=== PATIENT | male | born 1965 | race Caucasian/White ===

== ENCOUNTER → 2019-11-15 | Outpatient (CLI) | payer OTHER | LOC: MHCPAIN 13:09 | DX: M47.817 Spondylosis without myelopathy or radiculopathy, lumbosacral region (principal); M54.5 Low back pain; G89.29 Other chronic pain; M54.16 Radiculopathy, lumbar region | CPT/HCPCS: G0463 ==

== ENCOUNTER → 2019-11-23 | Outpatient (CLI) | payer OTHER | LOC: MHCPAIN 13:57 | DX: M47.817 Spondylosis without myelopathy or radiculopathy, lumbosacral region (principal); M54.5 Low back pain; M53.3 Sacrococcygeal disorders, not elsewhere classified | CPT/HCPCS: J1100; Q9967 ==

== ENCOUNTER → 2019-12-05 | Outpatient (CLI) | payer OTHER | LOC: MHCPAIN 13:35 | DX: M47.817 Spondylosis without myelopathy or radiculopathy, lumbosacral region (principal); M79.651 Pain in right thigh; G89.29 Other chronic pain; G57.11 Meralgia paresthetica, right lower limb | CPT/HCPCS: G0463 ==

== ENCOUNTER → 2019-12-12 | Outpatient (CLI) | payer OTHER | LOC: MHCPAIN 09:29 | DX: G57.11 Meralgia paresthetica, right lower limb (principal) | CPT/HCPCS: J1040 ==

== ENCOUNTER → 2019-12-26 | Outpatient (CLI) | payer OTHER | LOC: MHCPAIN 10:45 | DX: M47.817 Spondylosis without myelopathy or radiculopathy, lumbosacral region (principal); M54.5 Low back pain; M53.3 Sacrococcygeal disorders, not elsewhere classified; G89.29 Other chronic pain; M54.16 Radiculopathy, lumbar region | CPT/HCPCS: G0463 ==

== ENCOUNTER → 2020-03-18 | Outpatient (CLI) | payer OTHER | LOC: MHCPAIN 09:54 | DX: M47.817 Spondylosis without myelopathy or radiculopathy, lumbosacral region (principal); M54.5 Low back pain; M79.2 Neuralgia and neuritis, unspecified; G57.11 Meralgia paresthetica, right lower limb; G89.29 Other chronic pain | CPT/HCPCS: G0463 ==